=== PATIENT | male | born 1960 | race Caucasian/White ===

== ENCOUNTER 2019-12-08 19:49 | Emergency (ER) | payer OTHER ==
[2019-12-08] MEDS ORDERED: cefTRIAXone 1 GM, Lidocaine 1% 2.1 ML IM ONE ×2 (21:59)
--- NOTE | 2019-12-08 22:04 | EDM.PDOC ---
<Edison Paige - Last Filed: 12/08/19 22:12> ED HPI GENERAL MEDICAL PROBLEM - General Chief Complaint: Skin Complaint Stated Complaint: CELLUTIUS ON THE RIGHT ARM PER PT Time Seen by Provider: 12/08/19 22:00 Source of Information: Reports: Patient, RN, RN Notes Reviewed History Limitations: Reports: No Limitations - History of Present Illness INITIAL COMMENTS - FREE TEXT/NARRATIVE: Patient presents today for worsening rash on skin. He started noticing some sensitivity to the area about 4 days ago. The rash was not apparent until last night. Overnight, the size of the erythema seem to progress suddenly. Due to this, he presents to the ED for further evaluation. He denies fever, chills, trauma to the area. He only noticed a scab in both elbows but is unsure of how they got there. - Related Data Allergies Allergy/AdvReac Type Severity Reaction Status Date / Time No Known Allergies Allergy Verified 12/08/19 20:11 Home Meds: Home Meds Aspirin [Adult Aspirin Regimen] 81 mg PO DAILY 12/08/19 [History] Clopidogrel Bisulfate [Plavix] 75 mg PO DAILY 12/08/19 [History] Simvastatin [Zocor] 90 mg PO DAILY 12/08/19 [History] atenoloL [Atenolol] 25 mg PO DAILY 12/08/19 [History] lisinopriL [Lisinopril] 10 mg PO DAILY 12/08/19 [History] Past Medical History Cardiovascular History: Reports: CAD, High Cholesterol, Hypertension, Stents Gastrointestinal History: Reports: Bowel Obstruction - Past Surgical History Cardiovascular Surgical History: Reports: Coronary Artery Stent GI Surgical History: Reports: Lysis of Adhesions Social & Family History - Family History Family Medical History: Noncontributory - Tobacco Use Smoking Status *Q: Current Every Day Smoker Years of Tobacco use: 45 Packs/Tins Daily: 1 Second Hand Smoke Exposure: Yes - Recreational Drug Use Recreational Drug Use: No ED ROS GENERAL - Review of Systems Review Of Systems: Comprehensive ROS is negative, except as noted in HPI. ED EXAM, SKIN/RASH Exam: See Below Exam Limited By: No Limitations General Appearance: Alert, WD/WN, No Apparent Distress Ears: Normal External Exam, Hearing Grossly Normal Nose: Normal Inspection, No Blood Throat/Mouth: Normal Inspection, Normal Lips, Normal Voice Head: Atraumatic Respiratory/Chest: No Respiratory Distress, Lungs Clear, Normal Breath Sounds Cardiovascular: Normal Peripheral Pulses, Regular Rate, Rhythm GI/Abdominal: Normal Bowel Sounds, Soft, Non-Tender, No Distention (Male) Exam: Deferred Extremities: Arm Pain, Increased Warmth, Redness, Other (Erythematous area distal to the elbow which extends to posterior forearm. ROM to right elbow is normal. Right elbow has no swelling. Pulses palpated, sensory perception intact. Tenderness to palpation.) Neurological: Alert, Oriented, CN II-XII Intact, Normal Cognition, Normal Gait Psychiatric: Normal Affect, Normal Mood Skin: Warm, Erythema, Increased Warmth Location, Skin: Upper Extremity, Right Associated features: Warmth, Tenderness Departure - Departure Time of Disposition: 22:12 Disposition: Home, Self-Care 01 Condition: Fair Clinical Impression: Cellulitis - Discharge Information *PRESCRIPTION DRUG MONITORING PROGRAM REVIEWED*: No *COPY OF PRESCRIPTION DRUG MONITORING REPORT IN PATIENT OJ: No Instructions: Cellulitis, Adult Forms: ED Department Discharge Additional Instructions: Continue antibiotics until completed. If you notice decreased range of motion to your elbow or if your cellulitis does not improve after antibiotics, return to the emergency room or follow up with your primary care facility. Sepsis Event Note (ED) - Evaluation Sepsis Screening Result: No Definite Risk <Fatemeh Ramos - Last Filed: 12/08/19 23:35> ED HPI GENERAL MEDICAL PROBLEM - History of Present Illness Onset: Today, Gradual Course - Vital Signs Last Recorded V/S: Last Vital Signs Temp 98.8 F 12/08/19 20:17 Pulse 73 12/08/19 20:17 Resp 18 12/08/19 20:17 BP 121/69 12/08/19 20:17 Pulse Ox 95 12/08/19 20:17 - Orders/Labs/Meds Meds: Medications Discontinued Medications Generic Name Dose Route Start Last Admin Trade Name Freq PRN Reason Stop Dose Admin Ceftriaxone Sodium 1 gm/ 0 gm 12/08/19 21:59 12/08/19 22:08 Lidocaine HCl 2.1 ml IM 12/08/19 22:00 2.1 inj ONETIME ONE Administration - Re-Assessments/Exams Free Text/Narrative Re-Assessment/Exam: 12/08/19 23:35 I saw and evaluated the patient. Discussed with resident and agree with residents findings and plan as documented in the residents note. Sepsis Event Note (ED) - Focused Exam Vital Signs: Vital Signs Temp Pulse Resp BP Pulse Ox 12/08/19 20:17 98.8 F 73 18 121/69 95
== END 2019-12-08 22:43 | disposition home or self-care (01) ==
LOC: DL.ED 19:49
DX: L03.113 Cellulitis of right upper limb (principal); I25.10 Atherosclerotic heart disease of native coronary artery without angina pectoris; I10 Essential (primary) hypertension; E78.00 Pure hypercholesterolemia, unspecified; Z95.5 Presence of coronary angioplasty implant and graft; F17.210 Nicotine dependence, cigarettes, uncomplicated; Z79.82 Long term (current) use of aspirin; Z79.02 Long term (current) use of antithrombotics/antiplatelets; Z79.899 Other long term (current) drug therapy
CPT/HCPCS: 96372; 99283; J0696; J2001

== ENCOUNTER 2021-02-20 23:20 | Emergency (ER) | payer OTHER ==
--- NOTE | 2021-02-20 23:43 | EDM.PDOC ---
ED HPI GENERAL MEDICAL PROBLEM - General Chief Complaint: Upper Extremity Injury/Pain Stated Complaint: RIGHT SHOULDER SIDE UNABLE TO MOVE ARM IS NUMB Time Seen by Provider: 02/20/21 23:42 Source of Information: Reports: Patient, RN, RN Notes Reviewed History Limitations: Reports: No Limitations - History of Present Illness INITIAL COMMENTS - FREE TEXT/NARRATIVE: Holger is a 60 y/o male who presents to the ED via personal vehicle with complaints of right shoulder pain with gross deformity. Additionally, the patient reports he is unable to move his right arm and is experiencing numbness in his right and and fingers. 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 The patient denies striking his head or loss of consciousness during the event. He denies history of injury to the affected joint. He rates the pain in his right shoulder at 10/10; he has taken no medications or performed any supportive cares for his symptoms. Right Shoulder Pain Score (Numeric/FACES): 10 - Related Data Allergies Allergy/AdvReac Type Severity Reaction Status Date / Time No Known Allergies Allergy Verified 02/20/21 23:30 Home Meds: Home Meds Aspirin [Adult Aspirin Regimen] 81 mg PO DAILY 12/08/19 [History] Clopidogrel Bisulfate [Plavix] 75 mg PO DAILY 12/08/19 [History] Simvastatin [Zocor] 80 mg PO DAILY 12/08/19 [History] atenoloL [Atenolol] 25 mg PO DAILY 12/08/19 [History] lisinopriL [Lisinopril] 10 mg PO DAILY 12/08/19 [History] Past Medical History Cardiovascular History: Reports: CAD, High Cholesterol, Hypertension, Stents Gastrointestinal History: Reports: Bowel Obstruction - Past Surgical History Cardiovascular Surgical History: Reports: Coronary Artery Stent GI Surgical History: Reports: Lysis of Adhesions Social & Family History - Family History Family Medical History: No Pertinent Family History Review of Systems - Review of Systems Review Of Systems: Comprehensive ROS is negative, except as noted in HPI. ED EXAM, GENERAL - Physical Exam Exam: See Below Exam Limited By: No Limitations General Appearance: Alert, No Apparent Distress, Thin Eye Exam: Bilateral Eye: EOMI, Normal Inspection Ears: Normal External Exam, Hearing Grossly Normal Nose: Normal Inspection, Normal Mucosa, No Blood Throat/Mouth: Normal Inspection, Normal Oropharynx, Normal Voice, No Airway Compromise Head: Atraumatic, Normocephalic Neck: Normal Inspection, Supple, Non-Tender, Full Range of Motion Respiratory/Chest: No Respiratory Distress, Lungs Clear, Normal Breath Sounds, No Accessory Muscle Use Cardiovascular: Normal Peripheral Pulses, Regular Rate, Rhythm, No Gallop, No Murmur, No Rub Peripheral Pulses: 2+: Radial (L), Radial (R) GI/Abdominal: Normal Bowel Sounds, Soft (Male) Exam: Deferred Rectal (Males) Exam: Deferred Extremities: No Pedal Edema, Normal Capillary Refill, Arm Pain (To right shoulder), Limited Range of Motion (To right shoulder), Other (Numbness to right hand and fingers). No: Increased Warmth, Mottled, Pallor, Redness Neurological: Alert, Oriented, CN II-XII Intact, Normal Cognition, Normal Gait, Abnormal Reflexes, Sensory/Motor Deficit (Numbness to right hand and fingeres) Psychiatric: Normal Affect, Normal Mood Skin Exam: Warm, Dry, Intact, Normal Color, No Rash. No: Cyanosis, Ecchymosis, Erythema, Jaundice, Mottled, Pallor, Petechiae ED TRAUMA EXTREMITY PROCEDURES - Joint Reduction Right Shoulder Sedation: Other Pre-Procedure NV Status: Abnormal Post-Procedure NV Status: Normal Technique: Other (Upright technique) Number of Attempts: 1 Post-Reduction Imaging: Completely Reduced, No Fracture Seen Joint Reduction Complications: No Progress/Comments: Sling applied, post-reduction Course - Vital Signs Last Recorded V/S: Last Vital Signs Temp 96.2 F L 02/20/21 23:30 Pulse 56 L 02/20/21 23:30 Resp 16 02/20/21 23:30 BP 117/76 02/20/21 23:30 Pulse Ox 93 L 02/20/21 23:30 - Orders/Labs/Meds Meds: Medications Discontinued Medications Generic Name Dose Route Start Last Admin Trade Name Freq PRN Reason Stop Dose Admin Oxycodone/Acetaminophen 1 tab 02/21/21 00:17 02/21/21 00:40 Acetaminophen/Oxycodone 325-5 Mg Tab PO 02/21/21 00:18 Not Given ONETIME ONE - Radiology Interpretation Free Text/Narrative:: [facility] - Final Radiology Report Call: [phone] assistance Online chat: [email or web address] Name: HOLGER CM Age: 60Years M Date: 02/21/2021 SSN: -- : 1960 Study: CR SHOULDER COMP RT Requesting Physician: Binta Larios Images: 2 Addl Studies: Provided Clinical History: Fall onto right arm; Gross deformity to shoulder Contrast: Contrast Medium: Contrast Amount: Contrast Method: CONFIDENTIALITY STATEMENT This report is intended only for use by the referring physician, and only in accordance with law. If you received this in error, call [phone]. Page 1 of 1 PROCEDURE INFORMATION: Exam: XR Right Shoulder Exam date and time: 02/21/2021 12:02 AM Age: 60 years old Clinical indication: Other: Pain; Additional info: Fall onto right arm; Gross deformity to shoulder TECHNIQUE: Imaging protocol: XR Right shoulder. Views: 2 or more views. COMPARISON: No relevant prior studies available. FINDINGS: Bones/joints: There is anterior inferior dislocation of the shoulder.There is no evidence of acute fracture. There are mild degenerative changes of the acromioclavicular joint. Soft tissues: There is no soft tissue abnormality seen. IMPRESSION: Anterior inferior dislocation of the shoulder. Thank you for allowing us to participate in the care of your patient. Dictated and Authenticated by: Baldemar Alvarez MD 02/21/2021 12:23 AM Central Time ([place] & [place]) [facility] Final Radiology Report Call: [phone] assistance Online chat: [email or web address] Name: HOLGER CM Age: 60Years M Date: 02/21/2021 SSN: -- : 1960 Study: CR SHOULDER 1V RT Requesting Physician: Binta Larios Images: 1 Addl Studies: Provided Clinical History: post-reduction Contrast: Contrast Medium: Contrast Amount: Contrast Method: CONFIDENTIALITY STATEMENT This report is intended only for use by the referring physician, and only in accordance with law. If you received this in error, call [phone]. Page 1 of 1 PROCEDURE INFORMATION: Exam: XR Right Shoulder Exam date and time: 02/21/2021 12:19 AM Age: 60 years old Clinical indication: Other: Post red; Additional info: Post-reduction TECHNIQUE: Imaging protocol: XR Right shoulder. Views: 1 view. COMPARISON: CR Shoulder Comp Rt 02/21/2021 12:02 AM FINDINGS: Bones/joints: The previously identified anterior inferior dislocation has been reduced. No regional fracture seen. There are mild degenerative changes of the acromioclavicular joint. Moderate spur inferior aspect acromion. Soft tissues: There is no soft tissue abnormality seen. IMPRESSION: The previously identified dislocation has been successfully reduced. Thank you for allowing us to participate in the care of your patient. Dictated and Authenticated by: Baldemar Alvarez MD 02/21/2021 12:27 AM Central Time ([place] & [place]) - Re-Assessments/Exams Free Text/Narrative Re-Assessment/Exam: 02/21/21 X-ray of right shoulder obtained. Anterior, inferior dislocation of the shoulder appreciated. Right shoulder appropriately reduced without complication. Sling applied to right upper extremity. Post-reduction film unremarkable for fracture. Findings of examination and imaging reviewed with patient. Discussed supportive cares for right shoulder pain and post-reduction cares. Red flag signs and symptoms which would warrant reevaluation reviewed. Patient instructed to follow up with his PCP. Patient verbalized understanding and agreement with the plan of care. Departure - Departure Time of Disposition: 00:46 Disposition: Home, Self-Care 01 Condition: Good Clinical Impression: Fall from ground level Anterior shoulder dislocation Qualifiers: Encounter type: initial encounter Laterality: right Qualified Code(s): S43.014A - Anterior dislocation of right humerus, initial encounter - Discharge Information *PRESCRIPTION DRUG MONITORING PROGRAM REVIEWED*: Not Applicable *COPY OF PRESCRIPTION DRUG MONITORING REPORT IN PATIENT OJ: Not Applicable Instructions: Shoulder Dislocation, Fall Prevention in the Home, Adult Referrals: PCP,None [Primary Care Provider] - Forms: ED Department Discharge Additional Instructions: 1.) Wear sling while upright for the next 2-3 weeks. 2.) Follow up with your primary care provider in 3-5 days regarding visit today. 3.) You may take ibuprofen (Motrin/Advil) 400mg every six hours, as pain persists. You may also take acetaminophen (Tylenol) 650mg every six hours, as pain persists. You may stagger these medications so you are taking a dose every three hours. 4.) You may apply ice to the affected areas, as pain persists; 20 minutes, every hour
[2021-02-21] MEDS ORDERED: Acetaminophen/oxyCODONE 325-5 MG Tab PO ONE (00:17)
--- NOTE | 2021-02-21 00:23 | CR ---
PROCEDURE INFORMATION: Exam: XR Right Shoulder Exam date and time: 02/21/2021 12:02 AM Age: 60 years old Clinical indication: Other: Pain; Additional info: Fall onto right arm; Gross deformity to shoulder TECHNIQUE: Imaging protocol: XR Right shoulder. Views: 2 or more views. COMPARISON: No relevant prior studies available. FINDINGS: Bones/joints: There is anterior inferior dislocation of the shoulder.There is no evidence of acute fracture. There are mild degenerative changes of the acromioclavicular joint. Soft tissues: There is no soft tissue abnormality seen. IMPRESSION: Anterior inferior dislocation of the shoulder.
--- NOTE | 2021-02-21 00:27 | CR ---
PROCEDURE INFORMATION: Exam: XR Right Shoulder Exam date and time: 02/21/2021 12:19 AM Age: 60 years old Clinical indication: Other: Post red; Additional info: Post-reduction TECHNIQUE: Imaging protocol: XR Right shoulder. Views: 1 view. COMPARISON: CR Shoulder Comp Rt 02/21/2021 12:02 AM FINDINGS: Bones/joints: The previously identified anterior inferior dislocation has been reduced. No regional fracture seen. There are mild degenerative changes of the acromioclavicular joint. Moderate spur inferior aspect acromion. Soft tissues: There is no soft tissue abnormality seen. IMPRESSION: The previously identified dislocation has been successfully reduced.
== END 2021-02-21 00:54 | disposition home or self-care (01) ==
LOC: DL.ED 23:20
DX: S43.014A Anterior dislocation of right humerus, initial encounter (principal); S43.034A Inferior dislocation of right humerus, initial encounter; I10 Essential (primary) hypertension; E78.00 Pure hypercholesterolemia, unspecified; I25.10 Atherosclerotic heart disease of native coronary artery without angina pectoris; Z79.82 Long term (current) use of aspirin; Z79.02 Long term (current) use of antithrombotics/antiplatelets; Z79.899 Other long term (current) drug therapy; W01.0XXA Fall on same level from slipping, tripping and stumbling without subsequent striking against object, initial encounter
CPT/HCPCS: 23650; 73020-RT; 73030-RT; 99283-25